=== PATIENT | male | born 1975 | race Caucasian/White ===

== ENCOUNTER 2023-06-13 16:42 | Inpatient (IN) | payer OTHER ==
[~2023-06-13] VITALS: Ht 185.4 cm; Wt 73.5 kg
[2023-06-13 16:45] VITALS: BP_SYST 106; PULSE 73; RESP 16; TEMP 96.9; O2SAT 100
[2023-06-13 18:14] LABS: BASOPHILS # (AUTO) 0.1 K/uL (0.0-0.2); BASOPHILS % (AUTO) 0.7 % (0.0-2.0); EOSINOPHILS # (AUTO) 0.9 K/uL (0.0-0.4); EOSINOPHILS % (AUTO) 8.9 % (0.0-4.0); HEMATOCRIT 33.2 % (36-54); LYMPHOCYTES # (AUTO) 1.9 K/uL (1.0-5.5); LYMPHOCYTES % (AUTO) 18.6 % (20.5-51.5); MEAN CORPUSCULAR HEMOGLOBIN 29 pg (27-31); MEAN CORPUSCULAR HGB CONC 33 % (32-36); MEAN CORPUSCULAR VOLUME 86 fL (79.0-98.0); MONOCYTES # (AUTO) 0.8 K/uL (0.0-1.0); MONOCYTES % (AUTO) 8.3 % (1.7-9.3); NEUTROPHILS # (AUTO) 6.4 K/uL (1.8-7.7); NEUTROPHILS % (AUTO) 63.5 % (40.0-70.0); PLATELET COUNT (AUTO) 550 K/uL (130-430); RED BLOOD CELL COUNT(AUTO) 3.85 MIL/uL (4.2-6.2)
[2023-06-13 18:35] LABS: CALCIUM 7.9 mg/dL (8.4-11.0); CREATININE 1.07 mg/dL (0.55-1.30); POTASSIUM 4.4 mmol/L (3.5-5.1); TOTAL BILIRUBIN 0.2 mg/dL (0.0-1.0)
[2023-06-13 18:36] LABS: ALBUMIN 2.3 g/dL (3.4-4.8); TOTAL PROTEIN, SERUM 6.5 g/dL (6.4-8.3)
[2023-06-13 18:44] LABS: BILIRUBIN,DIRECT 0.1 mg/dL (0.0-0.3)
[2023-06-13] MEDS ORDERED: iohexoL 350 mgI/mL, 100 ML INFUS..BTL IV ONE (19:59)
[2023-06-13] MEDS: NACL 0.9% 1,000 ML IV ONE (21:34)
[2023-06-13 22:29] LABS: BILIRUBIN,URINE 1+ (NEGATIVE); BLOOD, URINE NEGATIVE (NEGATIVE); CLARITY/URINE TURBID (CLEAR); COLOR,URINE YELLOW (YELLOW); GLUCOSE,URINE NEGATIVE (NEGATIVE); KETONES,URINE TRACE (NEGATIVE); LEUKOCYTE ESTERASE ,URINE NEGATIVE (NEGATIVE); NITRITE, URINE POSITIVE (NEGATIVE); PROTEIN URINE TRACE (NEGATIVE); UROBILINOGEN,URINE 0.2 (0.2-1.0)
[2023-06-13] MEDS ORDERED: ZOLPIDEM TARTRATE 5 MG TABLET PO PRN (23:00)
[2023-06-13] MEDS ORDERED: ACETAMINOPHEN 325 MG TABLET PO PRN (23:00)
[2023-06-13] MEDS ORDERED: ONDANSETRON HCL 4 MG/2 ML VIAL IVP PRN (23:00)
[2023-06-13 23:10] LABS: BACTERIA,URINE MODERATE /HPF (None Seen); MUCUS,URINE 1+ /LPF (None Seen); RBC,URINE NONE SEEN /HPF (0-3); WBC,URINE 0-3 /HPF (0-3)
[2023-06-13 23:11] LABS: URINE AMORPHOUS URATE 4+ /HPF (None Seen)
[2023-06-13] MEDS ORDERED: PROP10TA10 PO (23:33)
[2023-06-13] MEDS ORDERED: OLAN5TAB3 PO (23:33)
[2023-06-13] MEDS ORDERED: CHOL100034 PO (23:33)
[2023-06-13] MEDS ORDERED: OSC500 PO (23:33)
[2023-06-13] MEDS ORDERED: TRAZ300T11 PO (23:33)
[2023-06-13] MEDS ORDERED: BUSP10TA3 PO (23:33)
[2023-06-13] MEDS ORDERED: MULT-1089 PO (23:33)
[2023-06-13] MEDS ORDERED: HALDOL DECANOATE IM (23:39)
[2023-06-14] MEDS ORDERED: cefTRIAXone 1 GM VIAL ONE (00:53)
[2023-06-14] MEDS: cefTRIAXone 1 GM in D5W 50 ML IV ONE (01:04)
[2023-06-14] MEDS: PANTOPRAZOLE SODIUM 40 MG/VIAL (PROTONIX) IVP ONE (01:05)
[2023-06-14] MEDS: NACL 0.9% 1,000 ML IV SCH (01:05)
[2023-06-14 05:21] LABS: ERYTHROCYTE SEDIMENTATION RATE 22 MM/HR (0-15)
[2023-06-14 05:30] LABS: BASOPHILS # (AUTO) 0.1 K/uL (0.0-0.2); BASOPHILS % (AUTO) 0.7 % (0.0-2.0); EOSINOPHILS # (AUTO) 0.6 K/uL (0.0-0.4); EOSINOPHILS % (AUTO) 6.3 % (0.0-4.0); HEMATOCRIT 30.1 % (36-54); HEMOGLOBIN 9.8 g/dL (14.0-18.0); LYMPHOCYTES # (AUTO) 1.3 K/uL (1.0-5.5); MEAN CORPUSCULAR HEMOGLOBIN 28 pg (27-31); MEAN CORPUSCULAR HGB CONC 33 % (32-36); MEAN CORPUSCULAR VOLUME 86 fL (79.0-98.0); MONOCYTES # (AUTO) 0.9 K/uL (0.0-1.0); MONOCYTES % (AUTO) 9.6 % (1.7-9.3); NEUTROPHILS # (AUTO) 6.8 K/uL (1.8-7.7); NEUTROPHILS % (AUTO) 70.4 % (40.0-70.0); PLATELET COUNT (AUTO) 495 K/uL (130-430); RED BLOOD CELL COUNT(AUTO) 3.49 MIL/uL (4.2-6.2); RED CELL DISTRIBUTION WIDTH 16.9 % (9.0-15.0); WHITE BLOOD COUNT (AUTO) 9.6 K/uL (4.8-10.8)
[2023-06-14 06:15] LABS: CALCIUM 7.8 mg/dL (8.4-11.0); CREATININE 0.71 mg/dL (0.55-1.30); POTASSIUM 3.9 mmol/L (3.5-5.1)
[2023-06-14] MEDS: LORazepam 2 MG/ML VIAL IVP PRN (08:42)
[2023-06-14] MEDS: OLANZapine 5 MG TABLET PO SCH (10:43)
[2023-06-14] MEDS: busPIRone HCL 5 MG TABLET PO SCH (10:44)
[2023-06-14] MEDS: PANTOPRAZOLE SODIUM 40 MG/VIAL (PROTONIX) IVP SCH (10:45)
[2023-06-14] MEDS ORDERED: PANTOPRAZOLE SODIUM 40 MG/VIAL (PROTONIX) ONE (10:45)
[2023-06-14] MEDS ORDERED: HYDROcodone/ACETAMIN 5-325 MG TAB (NORCO/ VICODIN) ONE (11:22)
[2023-06-14] MEDS: HYDROcodone/ACETAMIN 5-325 MG TAB (NORCO/ VICODIN) PO PRN (11:53)
[2023-06-14] MEDS: METHYLPREDNISOLONE SOD SUCC 40 MG/ML VIAL IVP ONE (12:47)
[2023-06-14] MEDS: metroNIDAZOLE 500 mg/NS 100 ML IV SCH (12:51)
[2023-06-14] MEDS ORDERED: metroNIDAZOLE 500 mg/NS 100 ML IV ONE (20:33)
[2023-06-14 21:00] VITALS: BP_SYST 119; PULSE 63; RESP 20; TEMP 97.8; O2SAT 96
[2023-06-14 21:44] VITALS: BP_SYST 119; PULSE 63; RESP 20; TEMP 97.8; O2SAT 96
[2023-06-14] MEDS: traZODone HCL 50 MG TABLET (DESYREL) PO SCH (22:15)
[2023-06-14] MEDS: METHYLPREDNISOLONE SOD SUCC 40 MG/ML VIAL IVP SCH (22:15)
[2023-06-14] MEDS: cefTRIAXone 1 GM in D5W 50 ML IV SCH (22:31)
[2023-06-14] MEDS: cefTRIAXone 1 GM IVPB PREMIX 50 ML IV ONE (22:31)
[2023-06-14] MEDS: metroNIDAZOLE 500 mg/NS 100 ML IV ONE (22:32)
[2023-06-15 00:14] VITALS: BP_SYST 129; PULSE 63; RESP 18; TEMP 96.8; O2SAT 97
[2023-06-15 08:12] LABS: CALCIUM 8.5 mg/dL (8.4-11.0); CREATININE 0.77 mg/dL (0.55-1.30); POTASSIUM 4.3 mmol/L (3.5-5.1); TOTAL BILIRUBIN 0.2 mg/dL (0.0-1.0); TOTAL PROTEIN, SERUM 6.1 g/dL (6.4-8.3)
[2023-06-15 09:08] LABS: HEMATOCRIT 31.8 % (36-54); HEMOGLOBIN 10.5 g/dL (14.0-18.0); MEAN CORPUSCULAR HEMOGLOBIN 29 pg (27-31); MEAN CORPUSCULAR HGB CONC 33 % (32-36); MEAN CORPUSCULAR VOLUME 86 fL (79.0-98.0); RED BLOOD CELL COUNT(AUTO) 3.69 MIL/uL (4.2-6.2); RED CELL DISTRIBUTION WIDTH 16.8 % (9.0-15.0); WHITE BLOOD COUNT (AUTO) 7.3 K/uL (4.8-10.8)
[2023-06-15 09:09] LABS: BASOPHILS % (AUTO) 0.1 % (0.0-2.0); LYMPHOCYTES # (AUTO) 0.6 K/uL (1.0-5.5); LYMPHOCYTES % (AUTO) 8.8 % (20.5-51.5); MONOCYTES # (AUTO) 0.2 K/uL (0.0-1.0); MONOCYTES % (AUTO) 2.5 % (1.7-9.3); NEUTROPHILS # (AUTO) 6.4 K/uL (1.8-7.7); NEUTROPHILS % (AUTO) 88.6 % (40.0-70.0); PLATELET COUNT (AUTO) 538 K/uL (130-430)
[2023-06-15 11:49] VITALS: BP_SYST 126; PULSE 72; RESP 15; TEMP 98; O2SAT 98
[2023-06-15 17:12] VITALS: BP_SYST 133; PULSE 72; RESP 16; TEMP 98.6; O2SAT 97
[2023-06-15 20:00] VITALS: BP_SYST 129; PULSE 62; RESP 18; TEMP 97.4; O2SAT 100
[2023-06-15] MEDS: METHYLPREDNISOLONE SOD SUCC 40 MG/ML VIAL IVP SCH (23:05)
[2023-06-16] VITALS (7 sets, daily range): BP systolic 112–148; PULSE 52–109; RESP 15–18; TEMP 97–98.2; O2SAT 96–100
[2023-06-16 09:54] LABS: BASOPHILS % (AUTO) 0.1 % (0.0-2.0); HEMATOCRIT 31.8 % (36-54); HEMOGLOBIN 10.3 g/dL (14.0-18.0); LYMPHOCYTES # (AUTO) 0.5 K/uL (1.0-5.5); LYMPHOCYTES % (AUTO) 4.2 % (20.5-51.5); MEAN CORPUSCULAR HEMOGLOBIN 28 pg (27-31); MEAN CORPUSCULAR HGB CONC 32 % (32-36); MEAN CORPUSCULAR VOLUME 86 fL (79.0-98.0); MONOCYTES # (AUTO) 0.3 K/uL (0.0-1.0); MONOCYTES % (AUTO) 2.5 % (1.7-9.3); NEUTROPHILS # (AUTO) 11.1 K/uL (1.8-7.7); NEUTROPHILS % (AUTO) 93.2 % (40.0-70.0); PLATELET COUNT (AUTO) 572 K/uL (130-430); RED BLOOD CELL COUNT(AUTO) 3.69 MIL/uL (4.2-6.2); RED CELL DISTRIBUTION WIDTH 16.8 % (9.0-15.0)
[2023-06-16 09:58] LABS: WHITE BLOOD COUNT (AUTO) 11.9 K/uL (4.8-10.8)
[2023-06-17] VITALS: BP_SYST 140; PULSE 45; RESP 18; TEMP 97.5; O2SAT 98
[2023-06-17 05:44] LABS: BASOPHILS % (AUTO) 0.1 % (0.0-2.0); HEMATOCRIT 31.5 % (36-54); LYMPHOCYTES # (AUTO) 0.6 K/uL (1.0-5.5); MEAN CORPUSCULAR HEMOGLOBIN 27 pg (27-31); MEAN CORPUSCULAR HGB CONC 32 % (32-36); MEAN CORPUSCULAR VOLUME 86 fL (79.0-98.0); MONOCYTES # (AUTO) 0.3 K/uL (0.0-1.0); MONOCYTES % (AUTO) 1.9 % (1.7-9.3); NEUTROPHILS # (AUTO) 14.4 K/uL (1.8-7.7); PLATELET COUNT (AUTO) 521 K/uL (130-430); RED BLOOD CELL COUNT(AUTO) 3.65 MIL/uL (4.2-6.2); RED CELL DISTRIBUTION WIDTH 16.7 % (9.0-15.0); WHITE BLOOD COUNT (AUTO) 15.3 K/uL (4.8-10.8)
[2023-06-17 07:31] VITALS: BP_SYST 129; PULSE 75; RESP 16; TEMP 98.4; O2SAT 100
[2023-06-17] MEDS: MORPHINE 2 MG/ML INJ. SYRINGE IVP PRN (07:40)
[2023-06-17 07:44] LABS: CALCIUM 8.2 mg/dL (8.4-11.0); CREATININE 0.72 mg/dL (0.55-1.30); PHOSPHORUS 3.1 mg/dL (2.7-4.5); POTASSIUM 4.2 mmol/L (3.5-5.1); TOTAL BILIRUBIN 0.1 mg/dL (0.0-1.0); TOTAL PROTEIN, SERUM 5.7 g/dL (6.4-8.3)
[2023-06-17] MEDS: prednisoLONE 15 MG/5 ML UDC PO SCH (09:00)
[2023-06-17] MEDS: CIPROFLOXACIN HCL 500 MG TABLET PO SCH (10:13)
[2023-06-17 11:54] VITALS: BP_SYST 126; PULSE 76; RESP 17; TEMP 97.8; O2SAT 100
[2023-06-17] MEDS: metroNIDAZOLE 500 MG TABLET PO SCH (13:25)
[2023-06-17 16:00] VITALS: BP_SYST 130; PULSE 60; RESP 16; TEMP 98; O2SAT 99
[2023-06-17 20:00] VITALS: BP_SYST 145; PULSE 61; RESP 20; TEMP 97.7; O2SAT 100
[2023-06-17] MEDS: OLANZapine 5 MG TABLET PO SCH (22:43)
[2023-06-17] MEDS: OXcarbazepine 150 MG TABLET(TRILEPTAL) PO SCH (22:43)
[2023-06-18] VITALS (7 sets, daily range): BP systolic 117–134; PULSE 56–97; RESP 15–20; TEMP 97.7–98.2; O2SAT 95–99
[2023-06-18 15:06] LABS: QUANTIFERON TB GOLD Indeterminate (Negative)
[2023-06-18 15:06] LABS: HEPATITIS A AB, IgM Negative (Negative); HEPATITIS B CORE AB, IgM Negative (Negative); HEPATITIS B SURFACE AG Negative (Negative)
[2023-06-19 00:14] VITALS: BP_SYST 128; PULSE 60; RESP 17; TEMP 97.6; O2SAT 98
[2023-06-19 03:07] LABS: HEPATITIS C VIRUS AB Non Reactive (Non Reactive)
[2023-06-19 08:10] VITALS: BP_SYST 142; PULSE 98; RESP 18; TEMP 96.9; O2SAT 100
[2023-06-19 11:52] VITALS: BP_SYST 115; PULSE 80; RESP 16; TEMP 98.2; O2SAT 100
[2023-06-19 16:06] LABS: HEMATOCRIT 31.3 % (36-54); HEMOGLOBIN 10.1 g/dL (14.0-18.0); LYMPHOCYTES # (AUTO) 0.5 K/uL (1.0-5.5); MEAN CORPUSCULAR HEMOGLOBIN 28 pg (27-31); MEAN CORPUSCULAR HGB CONC 32 % (32-36); MEAN CORPUSCULAR VOLUME 86 fL (79.0-98.0); MONOCYTES # (AUTO) 0.5 K/uL (0.0-1.0); MONOCYTES % (AUTO) 3.7 % (1.7-9.3); NEUTROPHILS # (AUTO) 12.1 K/uL (1.8-7.7); NEUTROPHILS % (AUTO) 92.3 % (40.0-70.0); PLATELET COUNT (AUTO) 537 K/uL (130-430); RED BLOOD CELL COUNT(AUTO) 3.65 MIL/uL (4.2-6.2); RED CELL DISTRIBUTION WIDTH 16.6 % (9.0-15.0); WHITE BLOOD COUNT (AUTO) 13.1 K/uL (4.8-10.8)
[2023-06-19 16:07] LABS: CALCIUM 7.2 mg/dL (8.4-11.0); CREATININE 0.78 mg/dL (0.55-1.30); POTASSIUM 3.6 mmol/L (3.5-5.1)
[2023-06-19 17:15] VITALS: BP_SYST 115; PULSE 80; RESP 16; TEMP 98.2; O2SAT 100
[2023-06-19 20:00] VITALS: BP_SYST 110; PULSE 58; RESP 16; TEMP 97.6; O2SAT 98
[2023-06-19 20:23] VITALS: O2SAT 100
[2023-06-20] VITALS: RESP 16
[2023-06-20 08:03] VITALS: BP_SYST 133; PULSE 62; RESP 17; TEMP 97.2; O2SAT 100
[2023-06-20 12:03] VITALS: BP_SYST 117; PULSE 69; RESP 18; TEMP 97.9; O2SAT 98
[2023-06-20 16:02] VITALS: BP_SYST 131; PULSE 72; RESP 16; TEMP 98.1; O2SAT 98
[2023-06-20 19:57] VITALS: BP_SYST 126; PULSE 64; RESP 17; TEMP 98.1; O2SAT 97
[2023-06-20] MEDS: prednisoLONE 15 MG/5 ML UDC PO SCH (21:25)
[2023-06-20 22:48] VITALS: O2SAT 98
[2023-06-21 02:10] VITALS: BP_SYST 121; PULSE 74; RESP 17; TEMP 98.1; O2SAT 100
[2023-06-21 06:10] LABS: BASOPHILS % (AUTO) 0.1 % (0.0-2.0); EOSINOPHILS % (AUTO) 0.2 % (0.0-4.0); HEMATOCRIT 31.8 % (36-54); HEMOGLOBIN 10.4 g/dL (14.0-18.0); LYMPHOCYTES # (AUTO) 0.9 K/uL (1.0-5.5); LYMPHOCYTES % (AUTO) 7.6 % (20.5-51.5); MEAN CORPUSCULAR HEMOGLOBIN 28 pg (27-31); MEAN CORPUSCULAR HGB CONC 33 % (32-36); MEAN CORPUSCULAR VOLUME 85 fL (79.0-98.0); MONOCYTES # (AUTO) 0.8 K/uL (0.0-1.0); MONOCYTES % (AUTO) 6.1 % (1.7-9.3); NEUTROPHILS # (AUTO) 10.6 K/uL (1.8-7.7); PLATELET COUNT (AUTO) 570 K/uL (130-430); RED BLOOD CELL COUNT(AUTO) 3.74 MIL/uL (4.2-6.2); RED CELL DISTRIBUTION WIDTH 16.5 % (9.0-15.0); WHITE BLOOD COUNT (AUTO) 12.4 K/uL (4.8-10.8)
[2023-06-21 06:28] LABS: CALCIUM 7.8 mg/dL (8.4-11.0); CREATININE 0.79 mg/dL (0.55-1.30); POTASSIUM 4.2 mmol/L (3.5-5.1)
[2023-06-21 09:20] VITALS: BP_SYST 128; PULSE 17; RESP 17; TEMP 97.4; O2SAT 99
[2023-06-21 11:40] VITALS: BP_SYST 124; PULSE 70; RESP 17; TEMP 98.2; O2SAT 98
[2023-06-21 13:06] LABS: QUANTIFERON TB GOLD Indeterminate (Negative)
[2023-06-21 20:00] VITALS: BP_SYST 118; PULSE 88; RESP 16; TEMP 97.9; O2SAT 98
== END 2023-06-21 20:30 | DRG 391 ==
LOC: SED 16:42 → SMU 22:49
PROVIDERS: ADMIT Internal Medicine; ATTEND Internal Medicine
DX: A09 Infectious gastroenteritis and colitis, unspecified (principal); E43 Unspecified severe protein-calorie malnutrition; D62 Acute posthemorrhagic anemia; N39.0 Urinary tract infection, site not specified; F20.0 Paranoid schizophrenia; R45.851 Suicidal ideations; F31.9 Bipolar disorder, unspecified; T38.0X5A Adverse effect of glucocorticoids and synthetic analogues, initial encounter; J44.9 Chronic obstructive pulmonary disease, unspecified; I10 Essential (primary) hypertension; Z88.8 Allergy status to other drugs, medicaments and biological substances; Z79.899 Other long term (current) drug therapy; Y92.89 Other specified places as the place of occurrence of the external cause; K58.0 Irritable bowel syndrome with diarrhea; Z68.21 Body mass index [BMI] 21.0-21.9, adult
CPT/HCPCS: 36415; 71046; 76376; 80048; 80053; 80074; 80076; 81000; 81001; 81015; 83690; 83735; 84100; 85025; 85651; 86480; 87040; 87045-TC; 87046; 87081; 87086; 87230; 89055; 96361; 96365; 96375; 99285; C9113; J0696; J1030; J2270; J3490; J7060; Q9967